=== PATIENT | male | born 1970 | race Caucasian/White ===

== ENCOUNTER → 2017-01-03 | Day surgery (SDC) | payer MEDICARE ==
[~2017-01-03] VITALS: Ht 175.3 cm; Wt 116.9 kg
[~2017-01-03] MED LIST: AMBIEN10 MG PO; AMOXICILLIN875 MG PO; ASPIRIN EC81 MG PO; BUMETANIDE2 MG PO; CALAN SR240 MG PO; CARDURA1 MG PO; COLACE100 MG PO; COLCRYS0.6 MG PO; COREG12.5 MG PO; CPAP INH; CUBICIN (NON-F500 MG IV; DOXYCYCLINE100 MG PO; FLONASE 50 MCG/16 GM NOSE; GLUCAGON/GLUCAGE1 MG SUB-Q; GLUCOSE1 EACH PO; HUMALOG100 UNIT/1 SUB-Q; HUMULIN R100 UNIT/1 SUB-Q; LASIX80 MG PO; LEVEMIR100 UNIT/1 SUB-Q; LOPRESSOR100 MG PO; NEURONTIN300 MG PO; NEURONTIN600 MG PO; NICODERM / HABIT7 MG TRANS; NORCO 5-325 TA1 EACH PO; NORVASC10 MG PO; NOVOLOG100 UNIT/M SUB-Q; OS-CAL 500+D31 EACH PO; PHOSLO667 MG PO; PREVACID15 MG PO; PRINIVIL (ZESTRI5 MG PO; ROCALTROL0.25 MCG PO; ROCEPHIN2 G1 IV; TESSALON PERLE100 MG PO; VERAPAMIL ER120 MG PO; ZAROXOLYN5 MG PO; ZOFRAN4 MG PO; ZOLOFT50 MG PO; ZYLOPRIM100 MG PO; [UNRECOGNIZED DRUG - CODE] PO
--- NOTE | ~2017-01-03 | OR ---
PATIENT'S NAME: MATILDE CARNES [facility] AGE: 46 Y [address] ROOM: [place] [id number] LOCATION: [facility] – [place] ADMIT DATE: 01/03/2017 OR/Procedure Report DISCHARGE DATE: FAMILY PHYSICIAN: EVANS KUMAR PA-C ATTENDING PHYSICIAN: MAHAMED STYLES SURGEON: Mahamed Styles MD BENDING MACHINE SET UP OPERATOR: DATE OF PROCEDURE: 01/03/2017 PREOPERATIVE DIAGNOSIS: End-stage renal. POSTOPERATIVE DIAGNOSIS: End-stage renal. PROCEDURE: Left arm brachiobasilic AV fistula superficialization. BEAM BUILDER: OR staff. ANESTHESIA: General. ESTIMATED BLOOD LOSS: 20 mL. OPERATIVE FINDINGS: Good thrill and bruit in the fistula. The fistula brought to the surface of skin. DESCRIPTION OF PROCEDURE: The patient was brought to the operating room, placed under general anesthesia, prepped and draped in a sterile manner. Preoperative time-out was performed. The patient received preoperative antibiotics. We made an incision along the medial aspect of the arm along the path of the basilic vein. We then dissected in a 360-degree fashion. Ligated all side branches with silk ties and clips. We then brought the fistula to the surface. We reapproximated the deep layers with Vicryl underneath the vein and then reapproximated the skin with 4-0 nylon. The patient tolerated the procedure well, was transferred to recovery room, and then allowed home later that day. MD ERICH HIGGINBOTHAMM/karenl /[id number] d: 01/03/17 2348 t: 01/05/17 0929, OPERATIVE SUMMARY
[2017-01-03 09:46] LABS: BASOPHIL # 0.1 K/uL (0.0-0.2); BASOPHIL % 1.1 %; EOSINOPHIL # 0.3 K/uL (0.0-0.5); EOSINOPHIL % 2.2 %; HEMATOCRIT 30.4 % (37.0-53.0); HEMOGLOBIN 10.4 g/dL (12.0-17.0); IMMATURE GRANULOCYTE # 0.1 K/uL (0.0-0.3); IMMATURE GRANULOCYTE % 0.5 %; LYMPHOCYTE # 1.7 K/uL (0.8-4.0); LYMPHOCYTE % 13.6 %; MCH 30.4 pg (27.0-34.0); MCHC 34.2 gm/dL (32.0-36.5); MCV 88.9 fl (83.0-98.0); MONOCYTE # 0.7 K/uL (0.0-1.0); MONOCYTE % 5.7 %; MPV 9.7 fl (9.4-12.4); NEUTROPHIL # (ANC) 9.4 K/uL (1.4-9.0); NEUTROPHIL % 76.9 %; NRBC % 0 /100WBC (0-0.00); PLATELET COUNT 242 K/uL (150-450); RBC 3.42 M/uL (4.00-6.00); RDW-CV 14.4 % (11.9-14.6); WBC 12.2 K/uL (4.0-11.0)
[2017-01-03 09:52] LABS: INR - (THERAPEUTIC) 0.96 (0.92-1.07); PROTIME 10.1 SECONDS (9.8-11.4)
[2017-01-03 10:00] LABS: ALBUMIN 2.7 gm/dL (3.5-5.0); ANION GAP 18.1 (10.0-19.0); POTASSIUM 4.1 mMol/L (3.7-5.1); TOTAL PROTEIN 7.1 g/dL (6.0-8.4)
[2017-01-03 10:01] LABS: CALCIUM 6.9 mg/dL (8.5-10.5); CREATININE 10.8 mg/dL (0.6-1.3); TOTAL BILIRUBIN 0.3 mg/dL (0.0-1.5)
--- NOTE | 2017-01-03 10:57 | NUR ---
2 iv attempts made per beau caceres 2 iv attempt made per elijahrn
== END ==
LOC: GPOC 12-27 10:00 → GSDC 09:00 → GPOC 10:00
PROVIDERS: Surgery Vascular Surgery
DX: E11.22 Type 2 diabetes mellitus with diabetic chronic kidney disease (principal); I13.2 Hypertensive heart and chronic kidney disease with heart failure and with stage 5 chronic kidney disease, or end stage renal disease; N18.6 End stage renal disease; I50.9 Heart failure, unspecified; J44.9 Chronic obstructive pulmonary disease, unspecified; M10.9 Gout, unspecified; E78.5 Hyperlipidemia, unspecified; G47.30 Sleep apnea, unspecified; M19.90 Unspecified osteoarthritis, unspecified site; Z88.8 Allergy status to other drugs, medicaments and biological substances; Z99.2 Dependence on renal dialysis; Z87.891 Personal history of nicotine dependence
CPT/HCPCS: J0690; J3010; J7030